=== PATIENT | female | born 1995 | race Caucasian/White ===

== ENCOUNTER → 2017-01-01 | Outpatient (REF) | payer BC | LOC: M SFHCCLAY 14:11 | PROVIDERS: ATTEND Nurse Practitioner | DX: N39.41 Urge incontinence (principal) ==

== ENCOUNTER → 2017-01-28 | Outpatient (CLI) | payer BC ==
--- NOTE | 2017-01-29 05:44 | REP ---
Clinical: Urinary frequency. Technique: Real time raymond scale ultrasound examination using curved array transducer. Findings: The bilateral kidneys are normal in contour, size, echogenicity and reniform shape. No hydronephrosis, nephrolithiasis, cystic or renal mass lesion appreciated. Right kidney measures 9.6 x 3.4 x 3.6 cm. Left kidney measures 10.3 x 5.2 x 4.4 cm. Bladder is normal in appearance and bilateral ureteral jets are noted. Impression: Normal renal ultrasound. Signed by Abhi Yun MD 01/29/2017 05:36 A
== END ==
LOC: M SMT 15:15
PROVIDERS: ATTEND Specialist
DX: R39.15 Urgency of urination (principal)

== ENCOUNTER → 2017-02-14 | Outpatient (REF) | payer BC | LOC: M WUC 08:50 | PROVIDERS: ATTEND Physician Assistant | DX: J02.9 Acute pharyngitis, unspecified (principal) ==

== ENCOUNTER → 2017-02-20 | Outpatient (CLI) | payer BC ==
[2017-02-20 17:09] LABS: ANION GAP 6 MEQ/L (8-16); BLOOD UREA NITROGEN 15 MG/DL (7-18); CALCIUM LEVEL 9.3 MG/DL (8.5-10.1); CARBON DIOXIDE LEVEL 30 MEQ/L (21-32); CHLORIDE LEVEL 105 MEQ/L (98-107); CREATININE FOR GFR 0.77 MG/DL (0.55-1.02); GLUCOSE, FASTING 69 MG/DL (70-105); POTASSIUM SERUM 4.4 MEQ/L (3.5-5.1); SODIUM LEVEL 141 MEQ/L (136-145)
== END ==
LOC: M SMT 13:58
PROVIDERS: ATTEND Nurse Practitioner Women's Health
DX: R39.15 Urgency of urination (principal)

== ENCOUNTER → 2017-12-21 | Outpatient (REF) | payer BC | LOC: M LAB REF 12:28 | DX: J03.90 Acute tonsillitis, unspecified (principal) | CPT/HCPCS: 87081 ==

== ENCOUNTER → 2018-05-05 | Outpatient (CLI) | payer BC | LOC: M CLY 09:27 | DX: M79.645 Pain in left finger(s) (principal) | CPT/HCPCS: 73140 ==

== ENCOUNTER 2022-03-30 18:35 | Emergency (ER) | payer BC ==
[~2022-03-30] VITALS: Ht 170.2 cm; Wt 92.4 kg
[2022-03-30 18:36] VITALS: BP 135/64
[2022-03-30] MEDS ORDERED: GABA-282 PO (18:42)
== END 2022-03-30 20:09 | disposition home or self-care (01) ==
LOC: M ED 18:35
DX: M77.32 Calcaneal spur, left foot (principal)

== ENCOUNTER 2025-07-29 17:26 | Emergency (ER) | payer BC, OTHER ==
[~2025-07-29] VITALS: Ht 170.2 cm; Wt 91.7 kg
[~2025-07-29 17:26] MED LIST: GABA-1172 PO
[2025-07-29 17:28] VITALS: TEMP 98
[2025-07-29 19:39] LABS: BASO # 0.1 10^3/uL (0.0-0.2); BASO % 1.2 % (0.0-1.0); EOS # 0.0 10^3/uL (0.0-0.5); EOS % 0.2 % (0.0-3.0); LYMPH # 1.7 10^3/uL (1.5-5.0); LYMPH % 26.0 % (24.0-44.0); MONO # 0.5 10^3/uL (0.0-0.8); MONO % 8.2 % (2.0-8.0); NEUTROPHILS # 4.2 10^3/uL (1.5-8.5); NEUTROPHILS % 64.1 % (36.0-66.0); PLATELET COUNT, AUTOMATED 352 10^3/uL (150-450)
[2025-07-29 20:04] LABS: CK-MB VALUE MASS < 1.0 NG/ML (<3.6); ETHYL ALCOHOL (ETHANOL) 0.003 % (0.000-0.010)
[2025-07-29 20:06] LABS: CALCIUM LEVEL 9.8 MG/DL (8.5-10.1); CARBON DIOXIDE LEVEL 26 MMOL/L (20-31); CHLORIDE LEVEL 107 MMOL/L (98-107); CREATININE FOR GFR 0.86 MG/DL (0.55-1.30); GLOMERULAR FILTRATION RATE > 90.0 (>60); MAGNESIUM LEVEL 2.1 MG/DL (1.8-2.4); POTASSIUM SERUM 4.4 MMOL/L (3.5-5.1); SODIUM LEVEL 143 MMOL/L (136-145)
[2025-07-29 20:08] LABS: FREE T4 1.24 NG/DL (0.89-1.76)
[2025-07-29 20:16] LABS: CPK CREATINE PHOSPHOKINASE 85 U/L (34-145)
[2025-07-29 21:00] VITALS: BP 123/64
[2025-07-29 21:11] VITALS: O2SAT 98
[2025-07-29] MEDS ORDERED: HOLTER MONITOR XX (21:13)
== END 2025-07-29 21:20 | disposition home or self-care (01) ==
LOC: M ED 17:26
DX: R55 Syncope and collapse (principal); F10.10 Alcohol abuse, uncomplicated

== ENCOUNTER → 2025-07-31 | Outpatient (CLI) | payer OTHER ==
[~2025-07-31] MED LIST changes: +HOLTER MONITOR XX
== END ==
LOC: M LAB 14:13
PROVIDERS: ATTEND Student in an Organized Health Care Education/Training Program
DX: R00.2 Palpitations (principal); Z53.9 Procedure and treatment not carried out, unspecified reason